=== PATIENT | female | born 1985 | race Caucasian/White ===

== ENCOUNTER 2018-10-12 00:01 | Inpatient (IN) | payer BC, OTHER ==
[2018-10-12] MEDS ORDERED: OXYTOCIN 10 UNIT/ML 1 ML VIAL IM PRN (00:31)
[2018-10-12] MEDS ORDERED: LIDOCAINE 0.5% (PF) 5 MG/ML (50 ML SDV) SQ PRN (00:31)
[2018-10-12] MEDS ORDERED: CARBOPROST TROMETHAMINE 250 MCG/ML 1 ML AMP IM PRN (00:31)
[2018-10-12] MEDS ORDERED: METHYLERGONOVINE 0.2 MG/ML 1 ML AMP IM PRN (00:31)
[2018-10-12] MEDS ORDERED: TERBUTALINE 1 MG/ML VIAL SQ PRN (00:31)
[2018-10-12] MEDS: LACTATED RINGERS 1,000 ML IV SCH ×3 (00:34→10:47)
[2018-10-12 00:40] VITALS: BMI 35.9
[2018-10-12] MEDS ORDERED: OXYTOCIN 20 UNITS/1000 ML NS 1,000 ML IV SCH ×2 (00:45→16:17)
[2018-10-12 00:48] LABS: Basophils % (A) 0 %; Eosinophils # (A) 0.2 k/uL (0-0.7); Eosinophils % (A) 1 %; HCT 39.1 % (34.0-46.0); HGB 12.9 gm/dL (11.4-16.0); Lymphocytes # (A) 2.7 k/uL (1.0-4.8); Lymphocytes % (A) 17 %; MCH 27.7 pg (25.0-35.0); MCHC 33.1 g/dL (31.0-37.0); MCV 83.5 fL (80.0-100.0); Mean Platelet Volume 7.2; Monocytes # (A) 0.7 k/uL (0-1.0); Monocytes % (A) 5 %; Neutrophils # (A) 11.7 k/uL (1.3-7.7); Neutrophils % (A) 75 %; Platelet Count 301 k/uL (150-450); RBC 4.68 m/uL (3.80-5.40); RDW 13.9 % (11.5-15.5); WBC 15.5 k/uL (3.8-10.6)
--- NOTE | 2018-10-12 01:14 | P.HPOB ---
History of Present Illness H&P Date: 10/12/18 Chief Complaint: Contractions for 24 hours. This patient is a pleasant 33-year-old 1 para 0 female estimated date of confinement 10/05/2018 estimated gestational age 41 weeks who presents to labor and delivery with complaints of contractions for approximately 24 hours. Patient was last seen in the office on October 08 and at that time was 1 cm dilated and is now 4-5 cm dilated thought to be in early labor. Patient apparently was scheduled for induction this . care is per Dr. Rouse and appears to be uncomplicated. Review of Systems Genitourinary: Reports Menstruation: Reports amenorrhea Past Medical History Past Medical History: No Reported History History of Any Multi-Drug Resistant Organisms: None Reported Past Surgical History: No Surgical Hx Reported Past Anesthesia/Blood Transfusion Reactions: No Reported Reaction Past Psychological History: No Psychological Hx Reported Smoking Status: Never smoker Past Alcohol Use History: None Reported Past Drug Use History: None Reported - Past Family History Mother Family Medical History: Thyroid Disorder Father Additional Family Medical History / Comment(s): type 2 diabetes Medications and Allergies Home Medications Medication Instructions Recorded Confirmed Type Pnv,Calcium 72/Iron/Folic Acid 1 tab PO DAILY 10/12/18 10/12/18 History [ Plus Tablet] Allergies Allergy/AdvReac Type Severity Reaction Status Date / Time No Known Allergies Allergy Verified 10/12/18 00:05 Exam Vital Signs Temp Pulse Resp BP Pulse Ox 10/12/18 00:35 97.9 F 91 18 132/72 10/12/18 00:18 97.9 F 91 16 139/82 97 10/12/18 00:06 97.9 F 91 18 139/82 97 Intake and Output 10/11/18 10/11/18 10/12/18 14:59 22:59 06:59 Other: Weight 94.801 kg - OBG Physical Exam Abdomen: no diffuse tenderness, no bruit present, no guarding noted, no hepatomegaly, no splenomegaly, no mass Vulva: both: normal Vagina: normal moisture, no discharge Cervix: no lesion (Cervix per the RN is 4-5 cm dilated 90% effaced.), no discharge Uterus: enlarged (Fundal height per Dr. Rouse 38-1/2 cm) Results blood work shows she is O positive, hepatitis B negative, RPR is nonreactive, Glucola was 95, group B strep was negative, last growth ultrasound was September 03 showed the baby to be at the 56th percentile. Result Diagrams: 10/12/18 00:37 Abnormal Lab Results - Last 24 Hours (Table) 10/12/18 Range/Units 00:37 WBC 15.5 H (3.8-10.6) k/uL Neutrophils # 11.7 H (1.3-7.7) k/uL Assessment and Plan Assessment: This is a 33-year-old 1 para 0 female 41-0/7 weeks who presents to labor and delivery with complaints of contractions found to be in early labor. Plan at this time is anticipate vaginal delivery and pain control per patient request. (1) 41 weeks gestation of Current Visit: Yes Status: Acute Code(s): Z3A.41 - 41 WEEKS GESTATION OF SNOMED Code(s): 40896306
[2018-10-12] MEDS ORDERED: ROPIVACAINE 5MG/ML 20ML VIAL ONE (02:12)
[2018-10-12] MEDS ORDERED: fentaNYL (PF) 50 MCG/ML 5 ML AMP ONE (02:12)
[2018-10-12] MEDS ORDERED: SODIUM CHLORIDE 0.9% 100 ML BAG ONE (02:12)
[2018-10-12] MEDS ORDERED: AMPICILLIN 2,000 MG in SODIUM CHLORIDE 0.9% 100 ML IVPB STA (05:58)
--- NOTE | 2018-10-12 06:04 | P.PN ---
Progress Note - Text Progress Note Date: 10/12/18 Patient received an epidural for pain control. Cervix on last exam was 7 cm per the RN. heart tones are 150 and reactive. Patient requests not to have Pitocin however she states apparently that she will allow Dr. Rouse to break her water. Last temperature was 99.0 and therefore I am going to start her on ampicillin prophylactically.
--- NOTE | 2018-10-12 06:21 | P.MSEPDOC ---
Presenting Problems - Arrival Data Date of Arrival on Unit: 10/12/18 Time of Arrival on Unit: 00:01 Mode of Transport: Wheelchair - Complaint OB-Reason for Admission/Chief Complaint: Possible Onset of Labor Comment: cntrx all day, worsening at 2100 Medical History - Information : 1 Para: 0 Term: 0 : 0 Abortions: Spontaneous or Elective: 0 Number of Living Children: 0 - Gestational Age Gestational Age by MARVIN (wks/days): 41 Weeks and 0 Days Review of Systems - Review of Systems Constitutional: No problems Breast: No problems ENT: No problems Cardiovascular: No problems Respiratory: No problems Gastrointestinal: No problems Genitourinary: No problems Musculoskeletal: No problems Neurological: No problems Skin: No problems Vital Signs - Temperature Temperature: 98.7 F - Pulse Right Sitting Brachial Pulse Rate: 104 Pulse Assessment Method: Pulse Oximetry - Respirations Respiratory Rate: 16 - Blood Pressure Right Arm Sitting Blood Pressure: 98/53 Blood Pressure Mean: 68 Blood Pressure Source: Automatic Cuff Medical Screen Scoring (Pre) - Cervical Exam Dilation: 4-7 cm = 2 Effacement: More than 50% = 2 Membranes: Intact - Uterine Contractions Frequency: > or = 36 weeks =2 Duration: > 40 seconds = 2 Intensity: Contraction palpated strong = 1 - Maternal Vital Signs Maternal Temperature: N/A Maternal Blood Pressure: N/A Signs of Preeclampsia: N/A Maternal Respirations: N/A - Pain Assessment Pain Location and Character: Back, Abdomen Pain Scale Used: Numeric (1 - 10) Pain Intensity: 7 Pain Management Goal: 4 Pain Description: *Acute, Sore, Squeezing, Tightness Pain Radiation Location: back Pain Frequency: Intermittent Pain Duration: 3 Pain Duration Units: Hours Pain Behavior: Vocalization Pain Aggravating Factors: Contractions Pharmacological Interventions: PRN Medication Non-Pharmacological Interventions: Position/Reposition - Maternal Trauma Maternal Trauma: N/A - Assessment Baseline FHR: 150 Heart Rate - NICHD Category: Category I (Normal) = 0 NST: Reactive Position: N/A - Total Score Total Score (Pre): 9 - Level of Risk Level of Risk: Medium (6-9) Physician Notification (Pre) - Physician Notified Physician Notified Date: 10/12/18 Physician Notified Time: 00:18 Physician/Practitioner Notifed:: Dr Hawkins - Notification Comment Comment: reported on pts c/o cntrx all day, worsening at 2100. Reported on fhts , cntrx pattern, SVE, vitals, hx, pt scheduled for IOL . Orders to admit , start IV, he'll be in [place] to see her Disposition - Disposition OB Disposition: Admit Transferred to:: st 1 I agree with the RN Medical Screening Exam: Yes Risk & Benefit of care provided described in d/c instruction: Yes Diagnosis: ENCOUNTER FOR FULL-TERM UNCOMPLICATED DELIVERY
[2018-10-12] MEDS: AMPICILLIN 1,000 MG in SODIUM CHLORIDE 0.9% 50 ML IVPB SCH ×2 (10:45→14:54)
[2018-10-12] MEDS ORDERED: SIMETHICONE 80 MG CHEWABLE PO PRN (16:17)
[2018-10-12] MEDS ORDERED: ACETAMINOPHEN TAB 325 MG TAB PO PRN (16:17)
[2018-10-12] MEDS ORDERED: ZOLPIDEM 5 MG TAB PO PRN (16:17)
[2018-10-12] MEDS ORDERED: BENZOCAINE/MENTHOL SPRAY 1 GM/SPRAY AEROSOL TOPICAL PRN (16:17)
[2018-10-12] MEDS ORDERED: diphenhydrAMINE 50 MG/ML 1 ML VIAL IVP PRN ×2 (16:17)
[2018-10-12] MEDS ORDERED: HYDROCORTISONE 2.5% RECTAL CREAM 30 GM TUBE RECTAL PRN (16:17)
[2018-10-12] MEDS ORDERED: WITCH HAZEL 1 EACH MED..PAD TOPICAL PRN (16:17)
[2018-10-12] MEDS ORDERED: LANOLIN CREAM 5 GM TUBE TOPICAL PRN (16:17)
[2018-10-12] MEDS ORDERED: diphenhydrAMINE 50 MG CAP PO PRN (16:17)
[2018-10-12] MEDS ORDERED: diphenhydrAMINE 25 MG CAP PO PRN (16:17)
--- NOTE | 2018-10-12 16:24 | P.PROBDLV ---
Vaginal Delivery Note - . Vaginal Delivery Note: Please H&P for details of patient's admission. She reached approximately 7 cm and then had spontaneous rupture membranes with thin meconium noted. She had received epidural anesthesia prior to that. She was started on oxytocin augmentation of labor. Once reaching complete dilation, she began pushing. She pushed for over 3 hours and 's head gradually came to a crown and then delivered across the perineum and a left occiput anterior lie followed by the anterior shoulder. Nose and mouth were bulb suctioned at the perineum. With one further push, the remainder the easily delivered and was placed on mother's abdomen. A large amount of thick meconium was noted after delivery of the infant. Nose and mouth were again bulb suctioned. Brisk cry was noted immediately. Cord was allowed to pulsate after delivery and then cord was clamped and cut. A viable female infant was noted with scores of 8 at 1 minute and 9 at 5 minutes. Infant weight is pending at this time. Placenta delivered shortly thereafter, intact, with a three-vessel cord. Marginal cord insertion was also noted. Uterus contracted well after oxytocin was given and uterine massage was carried out. Inspection of the perineum revealed a second- degree perineal laceration. This area was anesthetized with 1% lidocaine and then sutured with 3-0 and 2-0 Vicryl suture in the usual multilayer fashion. Estimated blood loss is approximately 200 mL's. Both mother and infant are in stable condition.
[2018-10-12] MEDS: SENNOSIDES-DOCUSATE SODIUM 1 EACH TAB PO SCH (19:28)
[2018-10-12] MEDS: IBUPROFEN 600 MG TAB PO PRN (19:28)
[2018-10-13] MEDS: AMPICILLIN 1,000 MG in SODIUM CHLORIDE 0.9% 50 ML IVPB SCH (03:41)
[2018-10-13 07:43] LABS: Basophils % (A) 0 %; Eosinophils # (A) 0.1 k/uL (0-0.7); Eosinophils % (A) 0 %; HCT 36.4 % (34.0-46.0); HGB 11.7 gm/dL (11.4-16.0); Lymphocytes # (A) 2.9 k/uL (1.0-4.8); Lymphocytes % (A) 14 %; MCH 27.7 pg (25.0-35.0); MCHC 32.1 g/dL (31.0-37.0); MCV 86.4 fL (80.0-100.0); Monocytes # (A) 1.2 k/uL (0-1.0); Monocytes % (A) 6 %; Neutrophils # (A) 17.1 k/uL (1.3-7.7); Neutrophils % (A) 79 %; Platelet Count 283 k/uL (150-450); RBC 4.22 m/uL (3.80-5.40); RDW 14.3 % (11.5-15.5); WBC 21.6 k/uL (3.8-10.6)
--- NOTE | 2018-10-13 09:03 | P.PNOBGVD ---
Subjective - Subjective Principal diagnosis: Status post vaginal delivery day #1 Interval history: Patient is doing well. Lochia is decreasing. Pain is fairly well controlled with pain medication. Her baby did go to the nursery and she is breast-feeding well. Patient reports: Reports appetite normal, Reports voiding normally, Reports pain well controlled, Reports ambulating normally : other (In level I nursery on antibiotics) Objective - Latest Vital Signs Latest vital signs: Vital Signs Temp Pulse Resp BP Pulse Ox 10/13/18 07:45 97.7 F 77 18 131/81 97 10/13/18 00:00 98.2 F 86 16 114/65 10/12/18 19:47 97.8 F 90 18 138/74 10/12/18 17:45 97.6 F 86 18 125/60 10/12/18 17:15 98.0 F 85 16 120/56 10/12/18 17:00 81 18 120/56 10/12/18 16:45 98.2 F 84 18 126/61 10/12/18 16:30 86 18 139/58 10/12/18 16:15 98.4 F 103 H 18 151/67 Intake and Output 10/12/18 10/13/18 10/13/18 22:59 06:59 14:59 Intake Total 21.05 Balance 21.05 Intake: Intake, IV Titration 21.05 Amount Oxytocin 20 Units/1000 ml 21.05 Ns 1,000 ml @ 1 MILLIUNIT/MIN 3 mls/hr IV .Q24H JOHN Rx#:[id number] Other: # Voids 2 1 - Exam Extremities: Present: normal. Absent: tenderness, edema Abdomen: Present: normal appearance, soft. Absent: distention, tenderness Uterus: Present: normal, firm. Absent: tenderness - Labs Labs: Abnormal Lab Results - Last 24 Hours (Table) 10/13/18 Range/Units 06:44 WBC 21.6 H (3.8-10.6) k/uL Neutrophils # 17.1 H (1.3-7.7) k/uL Monocytes # 1.2 H (0-1.0) k/uL Assessment and Plan Assessment: Status post vaginal delivery day #1 Plan: We'll continue with care today. Anticipate discharge home tomorrow.
[2018-10-13] MEDS: SENNOSIDES-DOCUSATE SODIUM 1 EACH TAB PO SCH (09:07)
[2018-10-13] MEDS: IBUPROFEN 600 MG TAB PO PRN (09:08)
[2018-10-14] MEDS: SENNOSIDES-DOCUSATE SODIUM 1 EACH TAB PO SCH ×3 (00:08→11:22)
[2018-10-14 07:46] LABS: Basophils # (A) 0.1 k/uL (0-0.2); Basophils % (A) 0 %; Eosinophils # (A) 0.3 k/uL (0-0.7); Eosinophils % (A) 2 %; HCT 37.6 % (34.0-46.0); HGB 12.2 gm/dL (11.4-16.0); Lymphocytes # (A) 3.3 k/uL (1.0-4.8); Lymphocytes % (A) 21 %; MCH 27.9 pg (25.0-35.0); MCHC 32.4 g/dL (31.0-37.0); MCV 86.2 fL (80.0-100.0); Mean Platelet Volume 7.4; Monocytes # (A) 0.8 k/uL (0-1.0); Monocytes % (A) 5 %; Neutrophils # (A) 11.6 k/uL (1.3-7.7); Neutrophils % (A) 72 %; Platelet Count 314 k/uL (150-450); RBC 4.37 m/uL (3.80-5.40); RDW 14.3 % (11.5-15.5); WBC 16.2 k/uL (3.8-10.6)
--- NOTE | 2018-10-14 08:59 | P.DS ---
Providers Date of admission: 10/12/18 00:22 Expected date of discharge: 10/14/18 Attending physician: Jessica Rouse Primary care physician: Stated None Hospital Course: This is a 33-year-old female 1 para 0 at 41-0/7 weeks who presented in active labor. She had spontaneous rupture membranes with meconium noted. She did develop a temperature during labor and was started on ampicillin and received 3 doses in labor. She delivered vaginally a viable female on with scores of 8 at 1 minute and 9 at 5 minutes and weight of 8 lbs. 2 oz. Her course has been uncomplicated. She has not had any fevers . Lochia is decreasing. She is breast-feeding. Pain is fairly well controlled with ibuprofen. Vital signs are stable. Abdomen is soft with fundus firm and nontender. Extremities show negative Homans but 1+ pitting edema. Impression is status post vaginal delivery day #2. Plan is to discharge home today. Routine instructions are given. She will be given a prescription for ibuprofen and a breast pump. She is advised to follow up in the office in 6 weeks for a check. She is advised to call the office if she has any further questions or concerns prior to her appointment time. Procedures: Oxytocin augmentation of labor Spontaneous vaginal delivery of a viable female on 10/12/2018. Patient Condition at Discharge: Stable Plan - Discharge Summary New Discharge Prescriptions: New Ibuprofen [Motrin] 600 mg PO Q6HR PRN #60 tab PRN Reason: Mild Pain Or Fever >= 100.5 Continue Pnv,Calcium 72/Iron/Folic Acid [ Plus Tablet] 1 tab PO DAILY Discharge Medication List Pnv,Calcium 72/Iron/Folic Acid [ Plus Tablet] 1 tab PO DAILY 10/12/18 [ History] Ibuprofen [Motrin] 600 mg PO Q6HR PRN #60 tab 10/14/18 [Rx] Follow up Appointment(s)/Referral(s): Jessica Rouse DO [Doctor of Osteopathic Medicine] - 6 Weeks Activity/Diet/Wound Care/Special Instructions: Instructions 1. Do not begin any exercise program for 3 weeks. 2. Do not resume sexual relations for 3 weeks or longer if uncomfortable. 3. You may take tub baths or showers at any time. 4. You may use tampons if desired after 3 weeks. 5. Keep the area of episiotomy (stitches) clean and dry. 6. If you are not nursing, wear a good fitting, supportive bra during the day and limit fluid intake for at least 1 week to prevent breast engorgement. 7. Call the office, [phone], within the next week to make appointment for your 6 week checkup if it has not already been made. 8. Report any of the following occurrences to the doctor promptly: a. Heavy, excessive bleeding b. Chills, fever c. Burning or frequency of urination d. Pain or redness and breasts if nursing e. Increasing pain or swelling in episiotomy (stitches). In addition to the above instructions, the following additional should be followed: 1. No heavy lifting or straining (exercising) until after 6 week checkup. 2. Keep abdominal incision clean and dry: You may wear a dressing if more comfortable. 3. Make office appointment for 10 days after going home or as instructed by her doctor. Discharge Disposition: HOME SELF-CARE
[2018-10-14 15:42] VITALS: BP 139/80; PULSE 94; RESP 17; TEMP 98
== END 2018-10-14 19:00 | disposition home or self-care (01) | DRG 806 ==
LOC: FBPOP 00:01 → 4FBP 00:22
PROVIDERS: ADMIT Obstetrics & Gynecology; ATTEND Obstetrics & Gynecology
PROC: 10E0XZZ Delivery of Products of Conception, External Approach (ICD-10-PCS; principal; 2018-10-12)
PROC: 0KQM0ZZ Repair Perineum Muscle, Open Approach (ICD-10-PCS; 2018-10-12)
PROC: 00HU33Z Insertion of Infusion Device into Spinal Canal, Percutaneous Approach (ICD-10-PCS; 2018-10-12)
PROC: 3E0R3BZ Introduction of Anesthetic Agent into Spinal Canal, Percutaneous Approach (ICD-10-PCS; 2018-10-12)
DX: O48.0 Post-term pregnancy (principal); O75.2 Pyrexia during labor, not elsewhere classified; O77.0 Labor and delivery complicated by meconium in amniotic fluid; O69.89X0 Labor and delivery complicated by other cord complications, not applicable or unspecified; O70.1 Second degree perineal laceration during delivery; Z37.0 Single live birth; Z3A.41 41 weeks gestation of pregnancy; Z83.3 Family history of diabetes mellitus; Z83.49 Family history of other endocrine, nutritional and metabolic diseases
CPT/HCPCS: 59025; 85025; 86850; 86900; 86901; 88307; 99213

== ENCOUNTER 2021-07-06 21:46 | Inpatient (IN) | payer BC, OTHER ==
[2021-07-06] MEDS ORDERED: LIDOCAINE 0.5% (PF) 5 MG/ML (50 ML SDV) SQ PRN (22:13)
[2021-07-06] MEDS ORDERED: CARBOPROST TROMETHAMINE 250 MCG/ML 1 ML AMP IM PRN (22:13)
[2021-07-06] MEDS ORDERED: METHYLERGONOVINE 0.2 MG/ML 1 ML AMP IM PRN (22:13)
[2021-07-06] MEDS ORDERED: OXYTOCIN 10 UNIT/ML 1 ML VIAL IM PRN (22:13)
[2021-07-06] MEDS ORDERED: TERBUTALINE 1 MG/ML VIAL SQ PRN (22:13)
[2021-07-06] MEDS ORDERED: LACTATED RINGERS 1,000 ML IV SCH (22:15)
[2021-07-06 22:30] LABS: Basophils % (A) 0 %; Eosinophils # (A) 0.1 k/uL (0-0.7); Eosinophils % (A) 1 %; HCT 37.8 % (34.0-46.0); HGB 12.6 gm/dL (11.4-16.0); Lymphocytes # (A) 2.5 k/uL (1.0-4.8); Lymphocytes % (A) 19 %; MCHC 33.2 g/dL (31.0-37.0); MCV 84.2 fL (80.0-100.0); Mean Platelet Volume 8.6; Monocytes # (A) 0.5 k/uL (0-1.0); Monocytes % (A) 4 %; Neutrophils # (A) 10.2 k/uL (1.3-7.7); Neutrophils % (A) 75 %; Platelet Count 241 k/uL (150-450); Poikilocytosis Slight; RBC 4.49 m/uL (3.80-5.40); RDW 14.1 % (11.5-15.5); WBC 13.7 k/uL (3.8-10.6)
[2021-07-06] MEDS ORDERED: AMPICILLIN 2,000 MG in SODIUM CHLORIDE 0.9% 100 ML IVPB ONE (22:30)
--- NOTE | 2021-07-06 22:41 | P.HPOB ---
History of Present Illness H&P Date: 07/06/21 Chief Complaint: labor 36-year-old presents at 40 weeks and 1 day in active labor. Her cervix is 8 cm dilated, 90% effaced, -1 station. She is roger every 4-5 minutes. heart tones 140 with moderate variability and reactive. Review of Systems All systems: negative Constitutional: Denies chills, Denies fever Eyes: denies blurred vision, denies pain Ears, nose, mouth and throat: Denies headache, Denies sore throat Cardiovascular: Denies chest pain, Denies shortness of breath Respiratory: Denies cough Gastrointestinal: Denies abdominal pain, Denies diarrhea, Denies nausea, Denies vomiting Genitourinary: Denies dysuria, Denies hematuria Musculoskeletal: Denies myalgias Integumentary: Denies pruritus, Denies rash Neurological: Denies numbness, Denies weakness Psychiatric: Denies anxiety, Denies depression Endocrine: Denies fatigue, Denies weight change Past Medical History Past Medical History: No Reported History Additional Past Medical History / Comment(s): obstetric history: She has had one previous vaginal delivery. This is her second and she had care with Dr. Rouse. Blood type is O+, antibodies negative, rubella immune, RPR nonreactive, hepatitis B negative. GBS positive. History of Any Multi-Drug Resistant Organisms: None Reported Past Surgical History: No Surgical Hx Reported Past Anesthesia/Blood Transfusion Reactions: No Reported Reaction Smoking Status: Never smoker - Past Family History Mother Family Medical History: Thyroid Disorder Father Additional Family Medical History / Comment(s): type 2 diabetes Medications and Allergies Home Medications Medication Instructions Recorded Confirmed Type Pnv,Calcium 72/Iron/Folic Acid 1 tab PO DAILY 10/12/18 07/06/21 History [ Plus Tablet] Allergies Allergy/AdvReac Type Severity Reaction Status Date / Time No Known Allergies Allergy Verified 07/06/21 21:51 Exam Osteopathic Statement: *. No significant issues noted on an osteopathic structural exam other than those noted in the History and Physical/Consult. Intake and Output 07/06/21 07/06/21 07/06/21 06:59 14:59 22:59 Other: Weight 90.718 kg Heart: Regular rate and rhythm Lungs: Clear to auscultation bilaterally Abdomen: Soft, nontender Extremities: Negative Homans sign Results Result Diagrams: 07/06/21 22:15 Abnormal Lab Results - Last 24 Hours (Table) 07/06/21 Range/Units 22:15 WBC 13.7 H (3.8-10.6) k/uL Neutrophils # 10.2 H (1.3-7.7) k/uL Assessment and Plan (1) Active labor Current Visit: Yes Status: Acute Code(s): EGH2415 - SNOMED Code(s): 095307023 Plan: 1. Admit to family place 2. Expectant management 3. Anticipate normal vaginal delivery.
[2021-07-07] MEDS ORDERED: diphenhydrAMINE 25 MG CAP PO PRN (00:10)
[2021-07-07] MEDS ORDERED: diphenhydrAMINE 50 MG/ML 1 ML VIAL IVP PRN ×2 (00:10)
[2021-07-07] MEDS ORDERED: HYDROCORTISONE 2.5% RECTAL CREAM 30 GM TUBE RECTAL PRN (00:10)
[2021-07-07] MEDS ORDERED: ACETAMINOPHEN TAB 325 MG TAB PO PRN (00:10)
[2021-07-07] MEDS ORDERED: ZOLPIDEM 5 MG TAB PO PRN (00:10)
[2021-07-07] MEDS ORDERED: BENZOCAINE/MENTHOL SPRAY 1 GM/SPRAY AEROSOL TOPICAL PRN (00:10)
[2021-07-07] MEDS ORDERED: SIMETHICONE 80 MG CHEWABLE PO PRN (00:10)
[2021-07-07] MEDS ORDERED: diphenhydrAMINE 50 MG CAP PO PRN (00:10)
[2021-07-07] MEDS ORDERED: LANOLIN CREAM 5 GM TUBE TOPICAL PRN (00:10)
[2021-07-07] MEDS ORDERED: OXYTOCIN 30 UNITS/500 ML NS 30 UNIT in SALINE 1 500ML.BAG IV SCH (00:15)
[2021-07-07] MEDS ORDERED: AMPICILLIN 1,000 MG in SODIUM CHLORIDE 0.9% 50 ML IVPB SCH (02:30)
[2021-07-07] MEDS: IBUPROFEN 600 MG TAB PO PRN ×2 (03:43→10:25)
[2021-07-07] MEDS: SENNOSIDES-DOCUSATE SODIUM 1 EACH TAB PO SCH (08:21)
--- NOTE | 2021-07-07 09:50 | P.PROBDLV ---
Vaginal Delivery Note - . Vaginal Delivery Note: 36-year-old presents at 40 weeks and 1 day in active labor. Her cervix is 8 cm dilated, 90% effaced, -1 station. She is roger every 4-5 minutes. heart tones 140 with moderate variability and reactive. Amniotomy performed at 2224 and clear fluid noted. She progressed to complete at 2306, pushed and delivered a viable female infant over intact perineum at 2347. Head delivered OA, nuchal cord 1 easily reduced, anterior shoulder delivered gentle downward guidance followed by posterior shoulder and rest of body. Nose and mouth bulb suctioned, cord clamped and cut, placed on mother's abdomen. Apgars 8, 9, weight 8 lbs. 4 oz. Placenta delivered spontaneously, intact with three-vessel cord at 0004. Vagina, cervix, perineum inspected. First-degree midline laceration was repaired with 3-0 Vicryl. Quantitative blood loss at delivery was 100 ml. Mother and baby in stable condition.
--- NOTE | 2021-07-07 09:51 | P.PNOBGVD ---
Subjective - Subjective Principal diagnosis: Status post normal vaginal delivery day #1 Interval history: Patient seen and examined. Denies nausea, vomiting, chest pain, shortness of breath or any calf pain. Patient reports: Reports appetite normal, Reports voiding normally, Reports pain well controlled, Reports ambulating normally [place]: doing well Objective - Latest Vital Signs Latest vital signs: Vital Signs Temp Pulse Resp BP Pulse Ox 07/07/21 08:00 98.1 F 88 18 113/65 97 07/07/21 02:15 97.0 F L 81 16 135/61 07/07/21 01:45 83 16 138/67 07/07/21 01:11 71 16 137/62 07/07/21 01:00 72 16 139/75 07/07/21 00:45 87 16 136/67 07/07/21 00:30 75 16 139/65 07/07/21 00:15 97.0 F L 77 16 130/62 07/06/21 21:51 97.6 F 81 16 131/69 Intake and Output 07/06/21 07/07/21 07/07/21 22:59 06:59 14:59 Intake Total 500 Output Total 100 Balance 400 Intake: Intake, IV Titration 500 Amount Oxytocin 30 Units/500 ml 500 Ns 30 unit In Saline 1 500ml.bag @ Per Protocol IV .Q0M [facility] Rx#:[id number] Output: Estimated Blood Loss 100 Other: # Voids 1 Weight 90.718 kg - Exam Lungs: bilateral: normal Chest: Normal S1, Normal S2 Extremities: Present: normal Abdomen: Present: normal appearance, soft Uterus: Present: normal, firm - Labs Labs: Abnormal Lab Results - Last 24 Hours (Table) 07/06/21 Range/Units 22:15 WBC 13.7 H (3.8-10.6) k/uL Neutrophils # 10.2 H (1.3-7.7) k/uL Assessment and Plan (1) Active labor Current Visit: Yes Status: Resolved Code(s): BWZ2955 - SNOMED Code(s): 700147233 (2) Normal vaginal delivery Current Visit: Yes Status: Acute Code(s): O80 - ENCOUNTER FOR FULL-TERM UNCOMPLICATED DELIVERY SNOMED Code(s): 57688748 Plan: 1. Continue care
[2021-07-08] MEDS: IBUPROFEN 600 MG TAB PO PRN (02:25)
[2021-07-08] MEDS: SENNOSIDES-DOCUSATE SODIUM 1 EACH TAB PO SCH ×2 (02:26→09:55)
[2021-07-08 06:53] LABS: Basophils % (A) 0 %; Eosinophils # (A) 0.2 k/uL (0-0.7); Eosinophils % (A) 1 %; HCT 31.8 % (34.0-46.0); HGB 10.5 gm/dL (11.4-16.0); Lymphocytes # (A) 3.2 k/uL (1.0-4.8); Lymphocytes % (A) 26 %; MCH 28.3 pg (25.0-35.0); MCV 85.8 fL (80.0-100.0); Monocytes # (A) 0.6 k/uL (0-1.0); Monocytes % (A) 5 %; Neutrophils % (A) 66 %; Platelet Count 187 k/uL (150-450); RBC 3.71 m/uL (3.80-5.40); RDW 14.1 % (11.5-15.5); WBC 12.1 k/uL (3.8-10.6)
[2021-07-08 08:07] VITALS: BP 114/77; PULSE 75; RESP 16; TEMP 97.9
--- NOTE | 2021-07-08 08:51 | P.DS ---
Providers Date of admission: 07/06/21 21:57 Expected date of discharge: 07/08/21 Attending physician: Jessica Rouse Primary care physician: Stated None - Discharge Diagnosis(es) (1) Active labor Current Visit: Yes Status: Resolved (2) Normal vaginal delivery Current Visit: Yes Status: Acute Hospital Course: Patient presented in active labor. She underwent normal vaginal delivery. course was uncomplicated. She denies nausea, vomiting, chest pain, shortness of breath or any calf pain. Patient will be discharged home day #2 in stable condition to follow-up with Dr. Rouse and 6 weeks. Plan - Discharge Summary New Discharge Prescriptions: New Ibuprofen [Motrin] 600 mg PO Q6HR PRN #30 tab PRN Reason: Mild Pain (Scale 1 To 3) No Action Pnv,Calcium 72/Iron/Folic Acid [ Plus Tablet] 1 tab PO DAILY Discharge Medication List Pnv,Calcium 72/Iron/Folic Acid [ Plus Tablet] 1 tab PO DAILY 10/12/18 [History] Ibuprofen [Motrin] 600 mg PO Q6HR PRN #30 tab 07/08/21 [Rx] Follow up Appointment(s)/Referral(s): Jessica Rouse DO [Doctor of Osteopathic Medicine] - 6 Weeks Discharge Disposition: HOME SELF-CARE
== END 2021-07-08 13:42 | disposition home or self-care (01) | DRG 807 ==
LOC: FBPOP 21:46 → 4FBP 21:57
PROVIDERS: ADMIT Obstetrics & Gynecology; ATTEND Obstetrics & Gynecology
PROC: 10E0XZZ Delivery of Products of Conception, External Approach (ICD-10-PCS; principal; 2021-07-07)
PROC: 0HQ9XZZ Repair Perineum Skin, External Approach (ICD-10-PCS; principal; 2021-07-07)
DX: O99.824 Streptococcus B carrier state complicating childbirth (principal); Z37.0 Single live birth; O69.81X0 Labor and delivery complicated by cord around neck, without compression, not applicable or unspecified; Z3A.40 40 weeks gestation of pregnancy; O70.0 First degree perineal laceration during delivery; Z79.899 Other long term (current) drug therapy; Z83.3 Family history of diabetes mellitus; Z83.49 Family history of other endocrine, nutritional and metabolic diseases
CPT/HCPCS: 85025; 86850; 86900; 86901; 99213